=== PATIENT | male | born 1955 | race Caucasian/White ===

== ENCOUNTER → 2025-07-23 07:39 | Outpatient (REF) | payer OTHER, SELFPAY | LOC: HWRAD 07:39 | PROVIDERS: ATTENDING PHYSICIAN Internal Medicine | DX: M54.17 Radiculopathy, lumbosacral region (principal); M54.40 Lumbago with sciatica, unspecified side; R26.89 Other abnormalities of gait and mobility | CPT/HCPCS: 72131 ==

== ENCOUNTER → 2025-08-22 06:34 | Outpatient (REF) | payer OTHER, SELFPAY | LOC: RAD 06:34 | PROVIDERS: ATTENDING PHYSICIAN Surgery Vascular Surgery; FAMILY PHYSICIAN Internal Medicine; REFERRING PHYSICIAN Internal Medicine Cardiovascular Disease | DX: I71.43 Infrarenal abdominal aortic aneurysm, without rupture (principal); R29.898 Other symptoms and signs involving the musculoskeletal system | CPT/HCPCS: 74174; 76770; 93922; 93925; Q9967 ==